=== PATIENT | male | born 1970 | race African-American/Black ===

== ENCOUNTER 2019-08-24 18:50 | Inpatient (IN) | payer MEDICAID, SELFPAY ==
[2019-08-24] VITALS (13 sets, daily range): BP systolic 141–180; BP diastolic 94–113; PULSE 71–126; RESP 17–38; TEMP 36.2–36.8; O2SAT 97–99; BMI 36.2
--- NOTE | ~2019-08-24 | XR_ITS ---
EXAMINATION: XR chest 2V DATE: 08/24/2019 20:38 INDICATION: Shortness of breath TECHNIQUE: PA and lateral views of the chest are obtained. COMPARISON: None available FINDINGS: There are diffuse interstitial and airspace opacities. Cardiomegaly is noted. There is a sm all right pleural effusion. No pneumothorax is identified. Calcified right hilar lymph nodes are cons istent with old granulomatous disease. IMPRESSION: 1. Cardiomegaly with likely pulmonary edema. 2. Small right pleural effusion. Reviewed, dictated and finalized at location A.
--- NOTE | ~2019-08-24 | CT_ITS ---
EXAMINATION: CTA chest abdomen pelvis DATE: 08/24/2019 21:43 INDICATION: Shortness of breath and abdominal distention TECHNIQUE: Computed tomographic angiography (CTA) of the chest, abdomen, and pelvis was performed wit h 100 mL Omnipque-350 intravenous contrast. Maximum intensity projection 3D-reconstructions of the ao rta and other arteries were constructed by the technologist on a separate workstation. The dose-lengt h product (DLP) was 1591.05 mGy-cm. Automated exposure control and iterative reconstruction technique were employed. COMPARISON: None. FINDINGS: CHEST CTA: The thoracic aorta is normal without aneurysm or dissection. Cardiomegaly is noted. There is a small right pleural effusion. Calcified pulmonary nodules and calcified mediastinal lymph nodes are consist ent with old granulomatous disease. There is mild dependent atelectasis. Mild bronchial wall thickeni ng is noted in the lower lobes. There is no pneumothorax. There is moderate thoracic spondylosis. ABDOMEN AND PELVIS CTA: The abdominal aorta is normal without aneurysm or dissection. There are single renal arteries bilater ally. The superior mesenteric artery, inferior mesenteric artery, and celiac axis appear normal. [place] calcifications in an otherwise normal spleen likely represent healed granulomatous disease. The liver, pancreas, and adrenal glands are normal. There is mild wall thickening of the gallbladder. A s mall volume of right upper quadrant ascites is noted. There is mild thickening of the left adrenal gl and. The right adrenal gland appears normal. The kidneys are unremarkable accounting for phase of con trast. No pathologically enlarged abdominal or pelvic lymph nodes are identified. There is no free in traperitoneal gas or evidence of bowel obstruction. There is diffuse anasarca. There is a small fat-c ontaining umbilical hernia. There is moderate lumbar spondylosis. IMPRESSION: 1. Cardiomegaly. 2. Small right pleural effusion. 3. Mild bronchial wall thickening of the lung bases which may be infectious or inflammatory. 4. Wall thickening of the gallbladder which could reflect acute cholecystitis. Correlate for right up per quadrant tenderness. 4. Diffuse anasarca and a small volume of ascites. Reviewed, dictated and finalized at location A. IMPRESSION: 1. Cardiomegaly. 2. Small right pleural effusion. 3. Mild bronchial wall thickening of the lung bases which may be infectious or inflammatory. 4. Wall thickening of the gallbladder which could reflect acute cholecystitis. Correlate for right upper quadrant tenderness. 4. Diffuse anasarca and a small volume of ascites.
--- NOTE | ~2019-08-24 | US_ITS ---
EXAMINATION: US renal BI EXAM DATE: 08/26/2019 09:56 INDICATION: Proteinuria. TECHNIQUE: Multiple grayscale and Doppler images of the kidneys were obtained (by a technologist who performed the scan) and subsequently reviewed. There is no prior study for comparison. FINDINGS: Right kidney: There is normal contour and echogenicity. It measures 9.1 x 5.1 x 4.6 centimeters. The re is a 9 mm cyst. There is no hydronephrosis. Left kidney: There is normal contour and echogenicity. It measures 10.2 x 5.8 x 5.1 centimeters. The re is a 1.5 cm cyst. There is no hydronephrosis. Bladder unremarkable. IMPRESSION: 1. Sonographically unremarkable kidneys. Reviewed, dictated and finalized at location A.
[2019-08-24 20:04] LABS: Basophils Absolute Auto 0.1 K/mm3 (0.0-0.1); Basophils Percent Auto 0.7 % (0.2-1.2); Eosinophils Absolute Auto 0.3 K/mm3 (0-0.3); Eosinophils Percent Auto 2.4 % (0-4.4); Hematocrit 47.2 % (42.0-52.0); Hemoglobin 13.4 g/dL (14.0-18.0); Immature Granulocyte Absolute 0.04 K/mm3 (0.00-0.031); Immature Granulocyte Percent A 0.3 % (0-0.5); Lymphocytes Absolute Auto 2.41 K/mm3 (0.9-3.2); Lymphocytes Percent Auto 19.7 % (18.3-44.2); Mean Corpuscular HGB Conc 28.4 g/dl (32-36); Mean Platelet Volume 12.7 fl (7.4-10.4); Monocytes Absolute Auto 1.1 K/mm3 (0.1-0.6); Monocytes Percent Auto 9.2 % (2.6-8.5); Neutrophils Absolute Auto 8.3 K/mm3 (1.3-6.7); Neutrophils Percent Auto 67.7 % (45.5-73.1); Nucleated Red Blood Cells Perc 0.2 % (0.0-0.2); Platelet Count Result 275 k/mm3 (150-375); Red Blood Count 6.38 M/mm3 (4.6-6.20); Red Cell Distribution Width 17.9 % (11.5-14.5); White Blood Count 12.2 K/mm3 (4.5-10.0)
[2019-08-24 20:17] LABS: Lactic Acid Reflex 1.4 mmol/L (0.7-2.1)
[2019-08-24 20:21] LABS: Hypochromasia 1+ (NORMAL); Platelet Estimate Adequate (Adequate)
--- NOTE | 2019-08-24 20:28 | ECG_ITS ---
Measurements Intervals [place] Rate: 110 P: 50 MI: 138 QRS: -21 QRSD: 88 T: 101 QT: 327 QTc: 443 Interpretive Statements SINUS TACHYCARDIA VENTRICULAR TRIGEMINY DELAYED PRECORDIAL R/S TRANSITION LOW QRS VOLTAGE IN LIMB LEADS CANNOT RULE OUT SEPTAL INFARCT, AGE INDETERMINATE BORDERLINE T WAVE ABNORMALITY- LATERAL LEADS ABNORMAL ECG Electronically Signed On 08-25-2019 7:49:35 CDT by Keagan Khan D.O.
[2019-08-24 20:32] LABS: Alanine Aminotransferase 15 U/L (4-50); Albumin Level 3.3 g/dL (3.5-5.1); Alkaline Phosphatase 72 U/L (38-126); Aspartate Amino Transferase 23 U/L (17-59); Bilirubin,Total 0.6 mg/dL (0.2-1.3); Blood Urea Nitrogen 16 mg/dL (9-20); Calcium 8.5 mg/dL (8.4-10.2); Carbon Dioxide 24 mmol/L (22-30); Chloride 107 mmol/L (98-107); Estimated CRCL calculation 82 ml/min; Estimated Glomerular Filt Rate > 60; Glucose 176 mg/dL (75-110); Lipase 118 U/L (23-300); Potassium 4.2 mmol/L (3.4-5.0); Sodium 138 mmol/L (137-145)
[2019-08-24 21:03] LABS: Magnesium 1.9 mg/dL (1.6-2.3)
--- NOTE | 2019-08-24 21:09 | ED.SOB ---
HPI - SOB/Dyspnea General Chief Complaint: Abdominal Pain Stated Complaint: Abd bloating, SOB Time Seen by Provider: 08/24/19 20:05 Source: patient and family Mode of arrival: ambulatory Limitations: no limitations History of Present Illness HPI Narrative: 49 yo male who presents with c/o shortness of breath x 2 weeks. Patient states he has had progressive shortness breath and it has worsened over the past 2 days. He reports now he has fatigue and shortness with any movement. He also noticed swelling to his legs and abdomen over the past week. He denies associated chest pain, cough, fever, abdominal pain, nausea, vomiting. HE denies previous history of cardiac, liver or renal disease. He has not seen a doctor in over 1 year. MD elicited complaint: shortness of breath Related Data Home Medications Medication Instructions Recorded Confirmed metformin 500 mg PO BID 08/25/19 08/25/19 Allergies Allergy/AdvReac Type Severity Reaction Status Date / Time No Known Allergies Allergy Verified 08/24/19 19:10 Review of Systems Review of Systems: All systems reviewed & are unremarkable except as noted in HPI and below Constitutional: Constitutional: Denies chills and Denies fever(s) ENT: Denies nasal congestion and Denies sore throat Cardiovascular: Cardiovascular: Denies chest pain, Denies rapid heart rate and Denies radiating jaw, neck or arm pain Respiratory: Respiratory: Denies cough, Reports dyspnea and Denies wheezing Gastrointestinal: Gastrointestinal: Denies abdominal pain, Reports bloating, Denies constipation, Denies diarrhea, Denies nausea and Denies vomiting Genitourinary: Genitourinary: Denies oliguria, Denies dysuria, Denies urinary frequency and Denies urinary incontinence [facility] Social History Social History Smoking status: Never smoker Second hand tobacco smoke exposure: No Alcohol intake: former Substance use: never Substance use type: does not use Gender identity (if verbalized by the patient): Male Spiritual care concerns: No Agree to blood products: Yes Exam Const: General: no acute distress and alert Orientation/consciousness: patient oriented x3 HENMT: Head: normocephalic and atraumatic Face and sinus: face symmetric Mouth: Yes Normal oral and palatal mucosa present and Yes lip normal Eyes: Pupils: Equal, round and reactive pupils present EOM: EOMs intact bilaterally Chest: Chest palpation & inspection: normal inspection of the chest Resp: Effort & Inspection: normal respiratory effort, no retractions and no use of accessory muscles Auscultation: crackles bilateral in the lower lung blancas Cardio: Rate: regular rate Rhythm: regular rhythm GI: Inspection: distended GI Palp: Yes Soft to palpation, No Tenderness to palpation present (GI), No Guarding due to palpation present (GI) and No Rigid due to palpation Back/Spine/Pelvis: Back: no CVA tenderness Skin: General skin exam: normal color Rashes: no rashes Neuro: General: patient oriented x3 and moves all extremities Extrem: General: edema bilateral (lower extremity, abdomen pitting) Psych: Mental Status: mental status grossly normal Affect: normal affect Course Consultations Consultation #1: I have discussed case with Dr. Uriarte who accepts patient to tele for new onset CHF. Date: 08/24/19 Time: 22:49 Vital Signs Vital signs: Vital Signs Temperature 98.3 F 08/24/19 19:06 Pulse Rate 115 H 08/24/19 19:06 Respiratory Rate 25 H 08/24/19 19:06 Blood Pressure 156/107 H 08/24/19 19:06 Pulse Oximetry 97 08/24/19 19:06 Temperature 97.2 F L 08/24/19 23:45 Pulse Rate 71 08/24/19 23:45 Respiratory Rate 24 H 08/25/19 02:48 Blood Pressure 180/100 H 08/24/19 23:45 Pulse Oximetry 92 08/25/19 02:48 MDM - SOB/Dyspnea Lab Data Attestation: I reviewed the patient's lab results. Result diagrams: 08/24/19 19:57 08/24/19 20:15 Labs: Lab R
[2019-08-24 21:13] LABS: NT Pro B Type Natriuretic Pept 1850 PG/ML (5-100)
[2019-08-24 21:16] LABS: Add Urine Microscopic? YES; Appearance Urine Clear (Clear); Bilirubin Urine Negative (Negative); Blood Urine Negative (Negative); Color Urine Yellow (Yellow); Glucose Urine UA Negative (Negative); Ketones Urine Negative (Negative); Leukocyte Esterase Ur Negative LEU/UL (Negative); Mucus Urine Few /lpf; Nitrate Urine Negative (Negative); Protein Urine 3+ mg/dL (Negative); RBC Urine 0-2 /hpf (0-2); Squamous Epithelial Cell Urine Rare /hpf (Few)
[2019-08-24 21:16] LABS: Troponin I 0.019 ng/mL (0.000-0.034)
[2019-08-24 21:18] LABS: Ammonia 13 umol/L (9-30)
[2019-08-24] MEDS: FUROSEMIDE INJ 40 MG/4 ML VIAL IV PUSH (21:21)
--- NOTE | 2019-08-24 21:27 | PC.NURSE ---
Patient being taken to radiology.
[2019-08-24 22:46] LABS: INR 1.1; Partial Thromboplastin Time 31.2 SECONDS (22.3-36.8); Prothrombin Time 13.4 Seconds (11.1-14.7)
[2019-08-25] VITALS (9 sets, daily range): BP systolic 136–172; BP diastolic 98–103; PULSE 72–111; RESP 18–24; TEMP 36.3–36.6; O2SAT 92–100
--- NOTE | 2019-08-25 03:40 | ADMGEN ---
This patient, Teo Bolden, was admitted to 3 [facility] Surg Room 322-01. Patient/family oriented to hospital policies and general routines including ID bracelet, bed and alarms, visiting hours, pain management, procedures, bathroom and other care routines, personal items, smoking policy, room service/diet, and visiting hours. Valuables list has been completed. Information on how to activate the Rapid Response Team has been discussed. Patient/Family are encouraged to report perceived risks to care and to ask questions if they do not understand what they are told or what they should do.
[2019-08-25 06:27] LABS: Basophils Absolute Auto 0.1 K/mm3 (0.0-0.1); Basophils Percent Auto 0.7 % (0.2-1.2); Eosinophils Absolute Auto 0.3 K/mm3 (0-0.3); Eosinophils Percent Auto 2.4 % (0-4.4); Hematocrit 43.2 % (42.0-52.0); Hemoglobin 12.3 g/dL (14.0-18.0); Immature Granulocyte Absolute 0.05 K/mm3 (0.00-0.031); Immature Granulocyte Percent A 0.5 % (0-0.5); Lymphocytes Absolute Auto 1.68 K/mm3 (0.9-3.2); Lymphocytes Percent Auto 15.6 % (18.3-44.2); Mean Corpuscular HGB Conc 28.5 g/dl (32-36); Mean Corpuscular Hemoglobin 20.9 pg (26-34); Mean Corpuscular Volume 73.5 fl (80-100); Mean Platelet Volume 12.3 fl (7.4-10.4); Monocytes Absolute Auto 1.1 K/mm3 (0.1-0.6); Monocytes Percent Auto 9.8 % (2.6-8.5); Neutrophils Absolute Auto 7.6 K/mm3 (1.3-6.7); Platelet Count Result 240 k/mm3 (150-375); Red Blood Count 5.88 M/mm3 (4.6-6.20); Red Cell Distribution Width 17.1 % (11.5-14.5); White Blood Count 10.8 K/mm3 (4.5-10.0)
[2019-08-25 06:39] LABS: Alanine Aminotransferase 15 U/L (4-50); Albumin Level 3.3 g/dL (3.5-5.1); Alkaline Phosphatase 71 U/L (38-126); Aspartate Amino Transferase 26 U/L (17-59); Bilirubin,Total 0.7 mg/dL (0.2-1.3); Blood Urea Nitrogen 15 mg/dL (9-20); Calcium 8.6 mg/dL (8.4-10.2); Carbon Dioxide 35 mmol/L (22-30); Chloride 103 mmol/L (98-107); Estimated CRCL calculation 87 ml/min; Estimated Glomerular Filt Rate > 60; Glucose 109 mg/dL (75-110); Potassium 4.3 mmol/L (3.4-5.0); Sodium 140 mmol/L (137-145)
[2019-08-25 06:42] LABS: Hemoglobin A1C 7.6 % (<5.7)
[2019-08-25] MEDS: ENOXAPARIN 40 MG/0.4 ML SYRINGE SUB-Q (08:44)
[2019-08-25] MEDS: FUROSEMIDE INJ 40 MG/4 ML VIAL IV PUSH ×2 (08:45→21:12)
[2019-08-25] MEDS: metFORMIN HCL 500 MG TABLET PO ×2 (08:45→17:40)
[2019-08-25 12:03] LABS: Glucose Point of Care 106 (65-105)
[2019-08-25 12:03] LABS: Glucose Point of Care 109 (65-105)
--- NOTE | 2019-08-25 13:47 | PM.IMHP ---
H&P: HPI History of Present Illness Chief complaint: CHF, edema Narrative: Teo Bolden is a 49 year old male with a medical history of diabetes who presented emergency room for abdominal bloating, pressure, leg swelling and shortness of breath. Patient states that the abdominal swelling and leg swelling started about 2-3 days ago and his shortness of breath started about 1 day ago. He says that his diet has not changed and he does not weigh himself daily. He has never been diagnosed with heart failure or had any heart disease. He does not eat fried food and sticks to a pretty healthy diet. He says he can lay flat without issue. He has no history of a stress test or echocardiogram. Prior to this swelling, he had no symptoms of shortness of breath when walking into the grocery store or walking up stairs. He is a manager of construction and has had no history of shortness of breath doing that activity either. He also bikes occasionally without issue. He denies any cold or flu-like symptoms, chest pain, dysuria, fevers, chills, diarrhea, constipation, rashes, open wounds, black stool or significant alcohol history. He said he has been feeling better since receiving the Lasix but still feels swollen. He has never had this happen before. His mom had CHF diagnosed at 60 but no coronary events noted. Review of Systems Review of Systems: All systems reviewed & are unremarkable except as noted in HPI and below PMFSH Past Medical History Medical History (Updated 08/25/19 @ 14:22 by Della Titus PA-C) T2DM (type 2 diabetes mellitus) Family History Family History (Updated 08/25/19 @ 14:12 by Della Titus PA-C) Mother Heart disease, Onset Age: 60 Social History Social History (Updated 08/25/19 @ 14:16 by Della Titus PA-C) Social History: Patient denies cigarette, marijuana, or drug use. He did occasionally smoke 2 cigars a day for a while but has quit that. He works in construction. He would like to does need his lauredorotheazan Parekh as his surrogate decision maker. He does not have a primary care physician and he would like to be a full code Smoking status: Never smoker Second hand tobacco smoke exposure: No Alcohol intake: former Substance use: never Substance use type: does not use Gender identity (if verbalized by the patient): Male Spiritual care concerns: No Agree to blood products: Yes Meds Home Medications and Allergies Home Medications Medication Instructions Recorded Confirmed Type metformin 500 mg PO BID 08/25/19 08/25/19 History Allergies Allergy/AdvReac Type Severity Reaction Status Date / Time No Known Allergies Allergy Verified 08/24/19 19:10 Vital Signs Vital Signs - 24 hr 08/24/19 19:06 08/24/19 19:35 08/24/19 19:45 Temperature 98.3 F Pulse Rate 115 H 110 H 106 H Respiratory Rate 25 H 30 H 22 H Blood Pressure 156/107 H Pulse Oximetry 97 08/24/19 19:46 08/24/19 20:01 08/24/19 20:15 Temperature Pulse Rate 108 H 106 H 110 H Respiratory Rate 21 H 36 H 38 H Blood Pressure 141/97 H Pulse Oximetry 08/24/19 20:53 08/24/19 21:00 08/24/19 21:02 Temperature Pulse Rate 126 H 113 H 107 H Respiratory Rate 25 H 38 H 30 H Blood Pressure 141/113 H Pulse Oximetry 08/24/19 21:24 08/24/19 22:03 08/24/19 23:29 Temperature 97.9 F Pulse Rate 107 H 109 H 99 Respiratory Rate 21 H 17 17 Blood Pressure 141/94 H Pulse Oximetry 99 08/24/19 23:45 08/25/19 02:48 08/25/19 06:00 Temperature 97.2 F L Pulse Rate 71 72 Respiratory Rate 18 24 H 24 H Blood Pressure 180/100 H 147/99 H Pulse Oximetry 99 92 95 Exam Narrative: Exam Narrative: General:Well developed well nourished patient resting on the side of the bed in no acute distress HEENT: Normocephalic, atraumatic, PERRL, Sclerae anicteric, oral mucosa moist, poor dentition Neck: Supple Resp: Decreased breath sounds at the bases. No wheezing or rhonchi Hea
[2019-08-25 17:36] LABS: Creatinine Urine 94.6 mg/dL
[2019-08-25 17:54] LABS: Total Protein Urine Random 425 mg/dL
[2019-08-25 18:22] LABS: Glucose Point of Care 90 (65-105)
[2019-08-25 22:09] LABS: Glucose Point of Care 115 (65-105)
[2019-08-26] VITALS (11 sets, daily range): BP systolic 130–152; BP diastolic 88–100; PULSE 65–109; RESP 18–23; TEMP 36.2–36.7; O2SAT 93–98
[2019-08-26 06:31] LABS: Hematocrit 43.5 % (42.0-52.0); Hemoglobin 12.9 g/dL (14.0-18.0); Mean Corpuscular HGB Conc 29.7 g/dl (32-36); Mean Corpuscular Hemoglobin 21.2 pg (26-34); Mean Corpuscular Volume 71.5 fl (80-100); Mean Platelet Volume 11.2 fl (7.4-10.4); Platelet Count Result 229 k/mm3 (150-375); Red Blood Count 6.08 M/mm3 (4.6-6.20); Red Cell Distribution Width 16.7 % (11.5-14.5); White Blood Count 10.7 K/mm3 (4.5-10.0)
[2019-08-26 06:35] LABS: Blood Urea Nitrogen 14 mg/dL (9-20); Carbon Dioxide 32 mmol/L (22-30); Chloride 103 mmol/L (98-107); Estimated CRCL calculation 87 ml/min; Estimated Glomerular Filt Rate > 60; Glucose 100 mg/dL (75-110); Magnesium 1.8 mg/dL (1.6-2.3); Potassium 3.8 mmol/L (3.4-5.0); Sodium 138 mmol/L (137-145)
[2019-08-26] MEDS: ENOXAPARIN 40 MG/0.4 ML SYRINGE SUB-Q (08:33)
[2019-08-26] MEDS: FUROSEMIDE INJ 40 MG/4 ML VIAL IV PUSH ×2 (08:33→21:09)
[2019-08-26] MEDS: LOSARTAN POTASSIUM 25 MG TABLET PO (08:33)
[2019-08-26] MEDS: metFORMIN HCL 500 MG TABLET PO ×2 (08:33→17:26)
[2019-08-26 10:03] LABS: Glucose Point of Care 90 (65-105)
[2019-08-26 12:17] LABS: Glucose Point of Care 128 (65-105)
--- NOTE | 2019-08-26 13:47 | PM.IMPN ---
Progress Note: A&P Assessment and Plan (1) Suspected CHF (congestive heart failure): Code(s): R09.89 - Other specified symptoms and signs involving the circulatory and respiratory systems Status: Acute Assessment and Plan: -----patient's symptoms are consistent with CHF and his BNP is elevated. Initial troponin negative and absolutely no chest pain. He has improved with 40 mg of IV Lasix BID so we will continue that. Echo has been ordered. Telemetry monitoring showed trigeminy but mag normal. Patient has not had any recent viral illnesses, change in diet, or chest pain. Precipitating etiology unclear at this time. Patient's family history is consistent his mom having CHF diagnosed in her 60s. (2) T2DM (type 2 diabetes mellitus): Code(s): E11.9 - Type 2 diabetes mellitus without complications Status: Acute Assessment and Plan: -----last glucose 128 and A1c is 7.6. At this time we will hold the metformin and continue with sliding scale insulin. (3) Proteinuria: Code(s): R80.9 - Proteinuria, unspecified Status: Acute Assessment and Plan: -----4.5g per day being excreted according to the random protein testing today. u/s normal. He is having a lot of swelling, could be nephrotic syndrome? Will ask nephrology to see the patient. There is no blood in the urine. (4) Anasarca: Code(s): R60.1 - Generalized edema Status: Acute Assessment and Plan: -----likely due to CHF but cannot rule out kidney disease. Liver Normal on CTA and no history of alcohol abuse. See above (5) Leukocytosis: Code(s): D72.829 - Elevated white blood cell count, unspecified Status: Acute Assessment and Plan: -----could be acute phase reactant. Patient has not had any fevers and no evidence of infection on exam, UA, or imaging. (6) Hypertension: Code(s): I10 - Essential (primary) hypertension Status: Acute Assessment and Plan: -----patient states he was diagnosed with hypertension but does not take any medications. losartan 25mg started daily and await echo results. (7) Proteinuria: Code(s): R80.9 - Proteinuria, unspecified Status: Acute Additional Plan Patient is being admitted to inpatient status and supervising physician is Dr. Dionte Alfaro Time Spent With Patient Time with patient: 25 - 35 minutes Subjective Date/time seen: 08/26/19 13:47 Interval history: Pt is a 49-year-old male here for hypervolemia. Patient states he is feeling better day after day with the Lasix. He is no longer having much shortness of breath and his abdomen feels less full. He has no scrotal edema. Pt denies nausea, vomiting, fevers, chills, constipation, diarrhea, chest pain, sob, or abdominal pain. Review of Systems Review of Systems: All systems reviewed & are unremarkable except as noted in HPI and below Exam Narrative: Exam Narrative: General:Well developed well nourished patient resting in the chair in acute distress HEENT: Normocephalic, atraumatic, PERRL, Sclerae anicteric, oral mucosa moist, poor dentition Neck: Supple Resp: Decreased breath sounds at the bases. No wheezing or rhonchi Heart: RRR with no murmurs. Telemetry reviewed which showed some occasional PVCs and episodes of trigeminy Abd: Distended. Positive bowel sounds Skin: Warm and dry Extremities: 1+ edema to mid [place] Neuro: Alert and Oriented x4 . CN 2-12 intact. No focal neurological deficits. Objective Data Vital Signs Vital Signs: Vital Signs - 24 hr 08/25/19 14:00 08/25/19 17:30 08/25/19 18:00 Temperature 97.9 F Pulse Rate 103 H 108 H 109 H Respiratory Rate 18 Blood Pressure 136/103 H Pulse Oximetry 95 08/25/19 20:00 08/25/19 22:00 08/25/19 22:50 Temperature 97.3 F L Pulse Rate 111 H 99 Respiratory Rate 18 19 Blood Pressure 172/98 H Pulse Oximetry 100 93 08/26/19 00:00 08/26/19 01:29 08/25
--- NOTE | 2019-08-26 15:08 | PM.CNNEP ---
Assessment and Plan Assessment and plan (1) Proteinuria: Code(s): R80.9 - Proteinuria, unspecified Status: Acute (2) Anasarca: Code(s): R60.1 - Generalized edema Status: Acute (3) Hypertension: Code(s): I10 - Essential (primary) hypertension Status: Acute (4) T2DM (type 2 diabetes mellitus): Code(s): E11.9 - Type 2 diabetes mellitus without complications Status: Acute (5) CHF (congestive heart failure): Code(s): I50.9 - Heart failure, unspecified Status: Acute Assessment and Plan: . 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 It is difficult to say if all of his swelling/edema is due to the proteinuria as there may be a component of congestive heart failure involved particularly since his BNP is abnormal. An echocardiogram has been ordered but is still pending at this time. Nevertheless, the treatment for both conditions (congestive heart failure and symptomatic proteinuria) are that of diuresis with his already which has already been instituted since his admission. Unfortunate I did not see how severe his swelling/ edema was prior to admission, but the patient reports that it is significantly improved with interventions to date. His urinalysis and urine sediment does not show any red blood cells or red cell casts so would seem less likely that he has some type of glomerulonephritis. for further evaluation of his proteinuria, I will check an SPEP, UPEP, as well as some other basic serological tests to rule out any type of infiltrative, inflammatory, or intrinsic kidney disease/pathology. His renal ultrasound did not show any anatomical issues. At this point, I would continue diuretic therapy an effort to optimize his volume status and follow up on the pending tests that I have ordered. If these tests are negative or equivocal, the next step would be consideration for a renal biopsy for definitive diagnosis. I will continue follow patient with you while he made hospitalized make further recommendations during his hospital course. Thank you for allowing me to participate in the care this patient. History of Present Illness Reason for Consult Consult date: 08/26/19 Reason for consult: proteinuria Chief Complaint Chief complaint: CHF, edema History of Present Illness Narrative: The patient is a 49 year old male with a past medical history as outlined below who presented to [facility] emergency room with complaints of abdominal bloating/pressure, lower extremity edema and shortness of breath. Apparently, these symptom started about 2 - 3 days prior to admission although the shortness of breath only really became an issue about a day before admission. Patient is not entirely clear what precipitated this change. He reports his diet is the same as it always has been and he reports no history with regard to congestive heart failure or any cardiac disease. He reports no orthopnea or paroxysmal nocturnal dyspnea or shortness of breath at baseline. 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 He reports no sick contacts fevers, chills nausea vomiting hematochezia, melena, or any other systemic symptoms. He reports that this has never happened before Workup and evaluation in the emergency room demonstrated the patient to be hemodynamically stable with clear evidence of significant swelling and edema particularly in his lower extremities and abdominal area. Routine blood test done did not show any significant findings other than an elevated BNP. Given this new onset swelling /edema, he was admitted to the hospital for further evaluation and therapy. Since his admission, he has been instituted on IV diuretic therapy and an echocardiogram has been ordered but is still pending. He states that he feels significantly better with the institution of
[2019-08-26 17:32] LABS: Glucose Point of Care 134 (65-105)
[2019-08-26 21:22] LABS: Glucose Point of Care 168 (65-105)
[2019-08-27] VITALS (12 sets, daily range): BP systolic 126–144; BP diastolic 79–97; PULSE 66–108; RESP 16–26; TEMP 36.3–36.7; O2SAT 94–97
--- NOTE | 2019-08-27 | ECHO_ITS ---
Patient Info Name: Teo Bolden Age: 49 years : 1970 Gender: Male Ht: 69 in Wt: 246 lbs BSA: 2.37 m2 HR: 98 bpm BP: 126 / 97 mmHg Heart Rhythm: Sinus Arrhythmia Technical Quality: Good Exam Date: 08/27/2019 11:09 AM Exam Location: [facility] Pulmonary Patient Status: Inpatient Admit Date: 08/24/2019 Staff Ordering Physician: Della Titus PA-C Sulfonation Equipment Operator: Osvaldo Cleary RDCS Attending Provider: Della Titus PA-C Referring Physician: Ariela MINOR; Exam Type: CA echo doppler color flow Study Info Indications I50.9 - Heart failure, unspecified Complete two-dimensional, color flow and Doppler transthoracic echocardiogram is performed. History/Risk Factors CHF; DM2, HTN, SOB, edema. Summary 1. Left ventricular chamber dimension is moderately enlarged. 2. Left ventricular systolic function is severely reduced, estimated at 25-30%. 3. Left atrial chamber dimension is moderately enlarged. 4. The aortic valve is normal. 5. There is trace mitral valve regurgitation. Left Ventricle Left ventricular chamber dimension is moderately enlarged. Left ventricular systolic function is severely reduced, estimated at 25-30%. The left ventricular diastolic function is grade I diastolic dysfunction. Right Ventricle Right ventricular chamber dimension is normal. Left Atria Left atrial chamber dimension is moderately enlarged. Right Atria Right atrial chamber dimension is normal. Aortic Valve The aortic valve is normal. Pulmonic Valve The pulmonic valve is not well visualized. Mitral Valve The mitral valve has normal leaflets and calcified annulus. There is trace mitral valve regurgitation. Tricuspid Valve The tricuspid valve leaflets are normal. Pericardium/Pleural The pericardium appears normal. Aorta The aortic root size at the sinus of Valsalva is normal. Left Ventricular Outflow Tract Name Value Normal LVOT 2D LVOT Diameter 1.8 cm LVOT Doppler LVOT Peak Gradient 6 mmHg LVOT Mean Gradient 3 mmHg LVOT VTI 19 cm LVOT VTI/AV VTI Ratio 1.0 LVOT Stroke Volume 52 ml LVOT CO 4.7 l/min LVOT CI 2.0 l/min/m2 Mitral Valve Name Value Normal MV Doppler MV Decel [place] 876 cm/s2 MV PHT 34 ms MV Area (PHT) 6.4 cm2 4.0-5.0 MV Diastolic Function MV E Peak Velocity 104 cm/s MV A Peak Velocity 57 cm/s MV E/A 1.8 MV Decel Time
[2019-08-27 06:16] LABS: Hematocrit 44.4 % (42.0-52.0); Hemoglobin 12.9 g/dL (14.0-18.0); Mean Corpuscular HGB Conc 29.1 g/dl (32-36); Mean Corpuscular Hemoglobin 21.4 pg (26-34); Mean Corpuscular Volume 73.5 fl (80-100); Mean Platelet Volume 11.8 fl (7.4-10.4); Platelet Count Result 229 k/mm3 (150-375); Red Blood Count 6.04 M/mm3 (4.6-6.20); Red Cell Distribution Width 17.2 % (11.5-14.5); White Blood Count 9.8 K/mm3 (4.5-10.0)
[2019-08-27 06:28] LABS: Blood Urea Nitrogen 15 mg/dL (9-20); Calcium 8.8 mg/dL (8.4-10.2); Carbon Dioxide 37 mmol/L (22-30); Chloride 99 mmol/L (98-107); Cholesterol 157 mg/dL (0-200); Estimated CRCL calculation 80 ml/min; Estimated Glomerular Filt Rate > 60; Glucose 104 mg/dL (75-110); HDL Direct 25 mg/dL; Potassium 3.9 mmol/L (3.4-5.0); Sodium 139 mmol/L (137-145); Triglycerides 93 mg/dL (<150)
[2019-08-27 06:38] LABS: Complement C3 139 mg/dL (88-165)
[2019-08-27 06:39] LABS: LDL Cholesterol Direct 113 mg/dL
[2019-08-27 08:45] LABS: Hepatitis B Surface Antigen Negative (Negative)
[2019-08-27 08:51] LABS: HAV RESULT Negative (Negative); Hepatitis B Core IgM Result Negative (Negative)
[2019-08-27 09:02] LABS: Hepatitis C Virus Antibody Negative (Negative)
[2019-08-27 09:03] LABS: Glucose Point of Care 134 (65-105)
[2019-08-27] MEDS: ENOXAPARIN 40 MG/0.4 ML SYRINGE SUB-Q (10:01)
[2019-08-27] MEDS: metFORMIN HCL 500 MG TABLET PO ×2 (10:01→18:18)
[2019-08-27] MEDS: LOSARTAN POTASSIUM 25 MG TABLET PO (10:02)
[2019-08-27] MEDS: FUROSEMIDE INJ 40 MG/4 ML VIAL IV PUSH (10:02)
--- NOTE | 2019-08-27 10:52 | PM.IMPN ---
Progress Note: A&P Assessment and Plan (1) Suspected CHF (congestive heart failure): Code(s): R09.89 - Other specified symptoms and signs involving the circulatory and respiratory systems Status: Acute Assessment and Plan: -----patient's symptoms are consistent with CHF and his BNP is elevated. Initial troponin negative and absolutely no chest pain. He has improved with 40 mg of IV Lasix BID so we will continue that. Echo has been ordered and will likely be done sometime today. Depending on that, may consult cardiology. Telemetry monitoring showed trigeminy but mag normal and pt asymptomatic. Will likely benefit from a beta tammy but will wait to see his EF before starting (carvdiolol vs metoprolol). Patient has not had any recent viral illnesses, change in diet, or chest pain. Precipitating etiology unclear at this time. Patient's family history is consistent his mom having CHF diagnosed in her 60s. (2) T2DM (type 2 diabetes mellitus): Code(s): E11.9 - Type 2 diabetes mellitus without complications Status: Acute Assessment and Plan: -----last glucose 134 and A1c is 7.6. At this time we will hold the metformin and continue with sliding scale insulin. (3) Proteinuria: Code(s): R80.9 - Proteinuria, unspecified Status: Acute Assessment and Plan: -----4.5g per day being excreted according to the random protein testing today. u/s normal. He is having a lot of swelling, could be nephrotic syndrome? Nephrology has started work up which is pending. There is no blood in the urine. (4) Anasarca: Code(s): R60.1 - Generalized edema Status: Acute Assessment and Plan: -----likely due to CHF but cannot rule out kidney disease. Liver Normal on CTA and no history of alcohol abuse. See above (5) Leukocytosis: Code(s): D72.829 - Elevated white blood cell count, unspecified Status: Acute Assessment and Plan: -----Resolved. could be acute phase reactant. Patient has not had any fevers and no evidence of infection on exam, UA, or imaging. (6) Hypertension: Code(s): I10 - Essential (primary) hypertension Status: Acute Assessment and Plan: -----patient states he was diagnosed with hypertension but does not take any medications. losartan 25mg started daily and await echo results. (7) ARCELIA (obstructive sleep apnea): Code(s): G47.33 - Obstructive sleep apnea (adult) (pediatric) Status: Acute Assessment and Plan: -----continue cpap Subjective Date/time seen: 08/27/19 10:52 Interval history: Pt is a 49-year-old male here for hypervolemia. Patient states he is feeling better day after day with the Lasix. He is no longer having much shortness of breath and his abdomen feels less full. He has no scrotal edema and his LE swelling is better. Pt denies nausea, vomiting, fevers, chills, constipation, diarrhea, chest pain, sob, or abdominal pain. Exam Narrative: Exam Narrative: General:Well developed well nourished patient walking around in the room in [facility] HEENT: Normocephalic, atraumatic, PERRL, Sclerae anicteric, oral mucosa moist, poor dentition Neck: Supple Resp: Decreased breath sounds at the bases. No wheezing or rhonchi. crackles in the left base Heart: RRR with no murmurs. Telemetry reviewed which showed some occasional PVCs and episodes of trigeminy Abd: Distended--better today. Positive bowel sounds Skin: Warm and dry Extremities: 1+ edema to ankles--improved . Neuro: Alert and Oriented x4 . CN 2-12 intact. No focal neurological deficits. Objective Data Vital Signs Vital Signs: Vital Signs - 24 hr 08/26/19 12:00 08/26/19 13:39 08/26/19 16:00 Temperature 97.3 F L Pulse Rate 98 101 H 107 H Respiratory Rate 18 Blood Pressure 130/100 H Pulse Oximetry 98 08/26/19 20:00 08/26/19 21:45 08/26/19 22:00 Temperature 98.1 F Pulse Rate 109 H 65 Respirat
[2019-08-27] MEDS: ATORVASTATIN 20 MG TABLET PO (13:22)
[2019-08-27 13:46] LABS: Glucose Point of Care 116 (65-105)
--- NOTE | 2019-08-27 16:14 | PM.CNCAR ---
Assessment and Plan Additional Plan decompensated congestive heart failure, by picture of biventricular failure which is due to LV systolic dysfunction based on the echocardiographic findings. He has improved significantly clinically with loop diuretics and losartan. Appears to be essentially asymptomatic at this time. Would recommend stopping IV furosemide since he appears to be euvolemic and starting oral spironolactone. I will advance his losartan to 50 mg daily and start beta-tammy therapy in the form of oral carvedilol. The patient should have a coronary angiogram to determine if his cardiomyopathy is ischemic which given his diabetes is certainly a good possibility. I did mention to Mr. hernandez that this could be done in the next couple of days while he is still in the hospital. It is his preference to go home from the hospital therapy and come back in for the invasive part of this workup as an outpatient. I told him that that was perfectly acceptable as well. It will be my expectation therefore that if he is doing well he can probably be discharged to home. I will make sure that my staff arranges for telemedicine follow-up visit in a couple weeks or so to assess his progress and discussed plans for an outpatient angiogram. Blaise Kirkland MD [facility] History of Present Illness History of Present Illness Consult date/time: Date of service:08/27/19 16:14 Reason For Visit: CHF, edema Narrative: This is a very pleasant 49-year-old black male that I am seeing at the request of the hospitalist this afternoon for assistance with the management of congestive heart failure. He was admitted to the hospital several days ago this past week on Tuesday evening with some shortness of breath edema and increasing abdominal girth that began a couple of weeks before admission. He was not experiencing any orthopnea or PND but he had exertional shortness of breath and what appeared to be the picture of volume overload. The patient has a history of diabetes for which he was taking metformin but freely admits to not seeing a physician regularly for a long time. He had no knowledge of hypertension dyslipidemia [place] specifically any sort of cardiac problem at all. Following admission he was treated with furosemide as well as losartan and over the 1st 48 hours he has was in the hospital he had marked improvement in his symptoms. He states at this point he feels essentially back to normal in terms of his breathing he is quite comfortable and has no obvious complaints. He was hoping to be discharged relatively soon. An echocardiogram was requested over the weekend which was performed today and interpreted by myself just a short time ago. The patient has significant left ventricular systolic failure with LV enlargement and a reduced ejection fraction resulting in consulting us to see the patient today. His ECG shows a sinus mechanism with low QRS voltage and occasional ventricular ectopic activity. Denies any sense of chest pain pressure or heaviness. He works as construction as a sosa and does not exercise regularly but does have a physically active job and has not noticed any problem with exertional chest pain of any kind. He states his mother had congestive heart failure and was found to have this in her 60s and at the age of 73 Review of Systems Constitutional: Constitutional: Reports no additional constitutional complaints Eyes: Eyes: Reports no additional eye complaints ENT: Reports system reviewed and no additional complaints, except as documented Cardiovascular: Cardiovascular: Reports as per HPI Respiratory: Respiratory: Reports as per HPI Gastrointestinal: Gastrointestinal: Reports no additional gastrointestinal complaints Genitourinary: Genitourinary: Reports no additional male genitourinary complaints Musculoskeletal: Musculoskeletal: Reports no additional musculoskeletal complaints Integumentary/Breasts: Skin/Breast: Reports syste
--- NOTE | 2019-08-27 16:20 | PM.PNNEP ---
Progress Note: A&P Assessment and Plan (1) Proteinuria: Code(s): R80.9 - Proteinuria, unspecified Status: Acute Assessment and Plan: The patient has proteinuria. His creatinine is normal. Albumin level is mildly low at 3.3. Cholesterol levels are not too bad. His urine studies show that he spills about 4 g of protein. He does not have blood in his urinalysis. Evaluation is pending. If no inflammatory source can be found this may negative turner to be from his diabetes. Will see with the evaluation shows. (2) Anasarca: Code(s): R60.1 - Generalized edema Status: Acute Assessment and Plan: He has lots of swelling. This seems to be a little bit better. Has been receiving diuretics. We will follow this along. (3) Hypertension: Code(s): I10 - Essential (primary) hypertension Status: Acute Assessment and Plan: Blood pressure is a bit higher than we would like. On losartan and carvedilol. (4) T2DM (type 2 diabetes mellitus): Code(s): E11.9 - Type 2 diabetes mellitus without complications Status: Acute Assessment and Plan: He is on metformin (5) CHF (congestive heart failure): Code(s): I50.9 - Heart failure, unspecified Status: Acute Assessment and Plan: Ejection fraction is severely reduced at 25-30%. Carvedilol and losartan should help this as well.\ Diuretics as needed Subjective Date/time seen: 08/27/19 16:20 Interval history: Patient feels about the same today. He still has some swelling. No chest pain or shortness of Breath Review of Systems Cardiovascular: Cardiovascular: Reports no additional cardiovascular complaints Respiratory: Respiratory: Reports no additional respiratory complaints Gastrointestinal: Gastrointestinal: Reports no additional gastrointestinal complaints Genitourinary: Genitourinary: Reports no additional male genitourinary complaints Exam Narrative: Exam Narrative: Well developed well-nourished in no acute distress Lungs clear Heart regular without rub Abdomen bowel sounds positive soft nontender Extremities 1-2+ edema Skin no rash Objective Data Vital Signs Vital Signs: Vital Signs - 24 hr 08/26/19 20:00 08/26/19 21:45 08/26/19 22:00 Temperature 36.7 C Pulse Rate 109 H 65 Respiratory Rate 22 H 18 Blood Pressure 147/88 H Pulse Oximetry 95 95 08/27/19 00:00 08/27/19 01:51 08/27/19 04:00 Temperature Pulse Rate 88 92 Respiratory Rate 26 H Blood Pressure Pulse Oximetry 94 08/27/19 06:00 08/27/19 08:00 08/27/19 12:00 Temperature 36.7 C Pulse Rate 98 93 97 Respiratory Rate 18 Blood Pressure 126/97 H Pulse Oximetry 95 08/27/19 14:00 Temperature 36.4 C L Pulse Rate 66 Respiratory Rate 16 Blood Pressure 144/79 H Pulse Oximetry 97 Intake/Output Intake/Output: Intake & Output 08/24/19 08/25/19 08/26/19 08/27/19 23:59 23:59 23:59 23:59 Intake Total 1090 730 720 Output Total 250 Balance 840 730 720 Meds/Results Medications: Active Medications Generic Name Dose Route Start Last Admin Trade Name Freq PRN Reason Stop Dose Admin Atorvastatin Calcium 20 mg 08/27/19 09:00 08/27/19 13:22 Lipitor PO 20 mg DAILY ZACKARY Administration Carvedilol 6.25 mg 08/27/19 21:00 Coreg PO Q12HR ZACKARY Dextrose 12.5 gm 08/25/19 01:12 Dextrose 50% Syringe IV PUSH PRN PRN Hypoglycemia Protocol Enoxaparin Sodium 40 mg 08/25/19 09:00 08/27/19 10:01 Lovenox SUB-Q 40 mg DAILY ZACKARY Administration Glucagon 1 mg 08/25/19 01:12 Glucagon For Inj IM PRN PRN Hypoglycemia Protocol Glucose 15 gm 08/25/19 01:12 Glutose 15 PO PRN PRN Hypoglycemia Protocol Dextrose 1,000 mls @ 100 mls/hr 08/25/19 01:12 Dextrose 5% 1,000 Ml IVPB PRN PRN Hypoglycemia Protocol Insulin Aspart 2 - 5 units 08/25/19 08:00 08/27/19 12:50
[2019-08-27 18:03] LABS: Glucose Point of Care 118 (65-105)
[2019-08-27] MEDS: carvediloL 6.25 MG TABLET PO (20:42)
[2019-08-27 22:22] LABS: Glucose Point of Care 163 (65-105)
[2019-08-28] VITALS (8 sets, daily range): BP systolic 127–145; BP diastolic 75–87; PULSE 66–109; RESP 16–20; TEMP 36.6; O2SAT 92–97
[2019-08-28 06:33] LABS: Basophils Absolute Auto 0.1 K/mm3 (0.0-0.1); Basophils Percent Auto 0.8 % (0.2-1.2); Eosinophils Absolute Auto 0.3 K/mm3 (0-0.3); Eosinophils Percent Auto 2.9 % (0-4.4); Hematocrit 45.7 % (42.0-52.0); Hemoglobin 13.3 g/dL (14.0-18.0); Immature Granulocyte Absolute 0.02 K/mm3 (0.00-0.031); Immature Granulocyte Percent A 0.2 % (0-0.5); Lymphocytes Absolute Auto 1.94 K/mm3 (0.9-3.2); Lymphocytes Percent Auto 21.6 % (18.3-44.2); Mean Corpuscular HGB Conc 29.1 g/dl (32-36); Mean Corpuscular Volume 72.3 fl (80-100); Mean Platelet Volume 11.4 fl (7.4-10.4); Monocytes Absolute Auto 0.8 K/mm3 (0.1-0.6); Monocytes Percent Auto 8.6 % (2.6-8.5); Neutrophils Absolute Auto 5.9 K/mm3 (1.3-6.7); Neutrophils Percent Auto 65.9 % (45.5-73.1); Platelet Count Result 238 k/mm3 (150-375); Red Blood Count 6.32 M/mm3 (4.6-6.20); Red Cell Distribution Width 16.6 % (11.5-14.5)
[2019-08-28 06:44] LABS: Albumin Level 3.4 g/dL (3.5-5.1); Blood Urea Nitrogen 16 mg/dL (9-20); Calcium 8.6 mg/dL (8.4-10.2); Carbon Dioxide 35 mmol/L (22-30); Chloride 100 mmol/L (98-107); Estimated CRCL calculation 74 ml/min; Estimated Glomerular Filt Rate > 60; Glucose 113 mg/dL (75-110); Magnesium 1.9 mg/dL (1.6-2.3); Phosphorus 4.5 mg/dL (2.5-4.5); Potassium 4.1 mmol/L (3.4-5.0); Sodium 137 mmol/L (137-145)
[2019-08-28 07:46] LABS: Hypochromasia 1+ (NORMAL); Ovalocytes 1+ (NORMAL); Platelet Estimate Adequate (Adequate)
[2019-08-28 08:09] LABS: Glucose Point of Care 133 (65-105)
--- NOTE | 2019-08-28 08:31 | PM.PNCARD ---
Progress Note: A&P Assessment and Plan (1) CHF (congestive heart failure): Code(s): I50.9 - Heart failure, unspecified Status: Acute Additional Plan Patient with past medical history of diabetes mellitus presented with shortness of breath, found to have acute decompensated CHF with severe LV systolic dysfunction. Patient has had significant symptomatic improvement and is eager to go home. Ischemic workup was discussed with the patient, and he has opted to undergo cardiac catheterization as an outpatient. Optimal, tolerable medical treatment-carvedilol, losartan, spironolactone. Will add furosemide 40 mg p.o. q.a.m. as a maintenance diuretic, which can be later switched to p.r.n. as an outpatient. May consider switching losartan to sacubitrill/valsartan as an outpatient. Subjective Date/time seen: 08/28/19 08:31 Date of service: 08/28/2019 Chief complaint: Shortness of breath Interval history: Patient reports improvement in shortness of breath and lower extremity swelling. He denies any chest pain, palpitation, dizziness or syncope. Exam Const: General: comfortable and no acute distress Other: well-developed well-nourished black male overweight no distress appears to be in good spirits denies any complaints currently HENMT: Mouth: Yes moist mucous membranes Eyes: Sclera: sclerae normal Pupils: Equal, round and reactive pupils present Neck: Neck: supple and no JVD Thyroid: thyroid normal Other: carotid pulses are normal in character bilaterally and are free of bruits Resp: Effort & Inspection: normal respiratory effort Auscultation: clear to auscultation bilaterally Cardio: Rate: regular rate Rhythm: regular rhythm Other: no audible cardiac murmur. PMI is not palpable GI: Auscultation: normal bowel sounds Skin: General skin exam: normal color Neuro: Cranial nerves: Yes Equal, round and reactive pupils present Cognition (Neuro): normal cognition Extrem: General: normal to inspection Objective Data Vital Signs Vital Signs: Vital Signs - 24 hr 08/27/19 12:00 08/27/19 14:00 08/27/19 16:00 Temperature 36.4 C L Pulse Rate 97 66 107 H Respiratory Rate 16 Blood Pressure 144/79 H Pulse Oximetry 97 08/27/19 20:00 08/27/19 20:42 08/27/19 22:00 Temperature 36.3 C L Pulse Rate 108 H 84 103 H Respiratory Rate 16 Blood Pressure 132/93 H Pulse Oximetry 95 08/27/19 22:22 08/28/19 00:00 08/28/19 04:00 Temperature Pulse Rate 103 H 97 90 Respiratory Rate 21 H Blood Pressure Pulse Oximetry 94 08/28/19 05:42 08/28/19 06:00 Temperature 36.6 C Pulse Rate 90 89 Respiratory Rate 20 16 Blood Pressure 145/87 H Pulse Oximetry 95 92 Intake/Output Intake/Output: Intake & Output 08/25/19 08/26/19 08/27/19 08/28/19 23:59 23:59 23:59 23:59 Intake Total 8771 300 0046 240 Output Total 250 Balance 831 381 8853 240 Meds/Results Medications: Active Medications Generic Name Dose Route Start Last Admin Trade Name Freq PRN Reason Stop Dose Admin Atorvastatin Calcium 20 mg 08/27/19 09:00 08/27/19 13:22 Lipitor PO 20 mg DAILY ZACKARY Administration Carvedilol 6.25 mg 08/27/19 21:00 08/27/19 20:42 Coreg PO 6.25 mg Q12HR ZACKARY Administration Dextrose 12.5 gm 08/25/19 01:12 Dextrose 50% Syringe IV PUSH PRN PRN Hypoglycemia Protocol Enoxaparin Sodium 40 mg 08/25/19 09:00 08/27/19 10:01 Lovenox SUB-Q 40 mg DAILY ZACKARY Administration Glucagon 1 mg 08/25/19 01:12 Glucagon For Inj IM PRN PRN Hypoglycemia Protocol Glucose 15 gm 08/25/19 01:12 Glutose 15 PO PRN PRN Hypoglycemia Protocol Dextrose 1,000 mls @ 100 mls/hr 08/25/19 01:12 Dextrose 5% 1,000 Ml IVPB PRN PRN Hypoglycemia Protocol Insulin Aspart 2 - 5 units 08/25/19 08:00 08/27/19 18:17 Novolog SUB-Q Not Given TIDWM ZACKARY Protocol Losartan Potassium 50 mg 08/28/19 09:00
[2019-08-28] MEDS: ATORVASTATIN 20 MG TABLET PO (09:11)
[2019-08-28] MEDS: metFORMIN HCL 500 MG TABLET PO (09:11)
[2019-08-28] MEDS: carvediloL 6.25 MG TABLET PO (09:11)
[2019-08-28] MEDS: ENOXAPARIN 40 MG/0.4 ML SYRINGE SUB-Q (09:11)
[2019-08-28] MEDS: LOSARTAN POTASSIUM 50 MG TABLET PO (09:12)
[2019-08-28] MEDS: SPIRONOLACTONE 25 MG TABLET PO (09:13)
[2019-08-28] MEDS: FUROSEMIDE 40 MG TABLET PO (09:52)
--- NOTE | 2019-08-28 10:42 | PM.PNNEP ---
Progress Note: A&P Assessment and Plan (1) Proteinuria: Code(s): R80.9 - Proteinuria, unspecified Status: Acute Assessment and Plan: The patient has proteinuria. His creatinine is normal. Albumin level is mildly low at 3.3. Cholesterol levels are not too bad. His urine studies show that he spills about 4 g of protein. He does not have blood in his urinalysis. Evaluation is pending. So far, complements are normal, hepatitis is negative, Will see with the evaluation shows. (2) Anasarca: Code(s): R60.1 - Generalized edema Status: Acute Assessment and Plan: Swelling is vastly improved. Has been receiving diuretics, 40 mg a day of Lasix. Launch is numbers on this. (3) Hypertension: Code(s): I10 - Essential (primary) hypertension Status: Acute Assessment and Plan: Blood pressure is a bit higher than we would like. On losartan and carvedilol. On diuretics as well. (4) T2DM (type 2 diabetes mellitus): Code(s): E11.9 - Type 2 diabetes mellitus without complications Status: Acute Assessment and Plan: He is on metformin (5) CHF (congestive heart failure): Code(s): I50.9 - Heart failure, unspecified Status: Acute Assessment and Plan: Ejection fraction is severely reduced at 25-30%. Carvedilol and losartan should help this as well. Additional Plan Subjective Date/time seen: 08/28/19 10:42 Interval history: Patient feels about the same today. He has almost no swelling. No chest pain or shortness of Breath Eager for discharge. Review of Systems Cardiovascular: Cardiovascular: Reports no additional cardiovascular complaints Respiratory: Respiratory: Reports no additional respiratory complaints Gastrointestinal: Gastrointestinal: Reports no additional gastrointestinal complaints Genitourinary: Genitourinary: Reports no additional male genitourinary complaints Exam Narrative: Exam Narrative: Well developed well-nourished in no acute distress Lungs clear to auscultation Heart regular without rub Abdomen bowel sounds positive soft nontender Extremities 1-2+ edema Skin no rash or subcu nodules Objective Data Vital Signs Vital Signs: Vital Signs - 24 hr 08/27/19 12:00 08/27/19 14:00 08/27/19 16:00 Temperature 36.4 C L Pulse Rate 97 66 107 H Respiratory Rate 16 Blood Pressure 144/79 H Pulse Oximetry 97 04/20/20 20:00 08/27/19 20:42 08/27/19 22:00 Temperature 36.3 C L Pulse Rate 108 H 84 103 H Respiratory Rate 16 Blood Pressure 132/93 H Pulse Oximetry 95 08/27/19 22:22 08/28/19 00:00 08/28/19 04:00 Temperature Pulse Rate 103 H 97 90 Respiratory Rate 21 H Blood Pressure Pulse Oximetry 94 08/28/19 05:42 08/28/19 06:00 08/28/19 08:00 Temperature 36.6 C Pulse Rate 90 89 109 H Respiratory Rate 20 16 Blood Pressure 145/87 H Pulse Oximetry 95 92 08/28/19 09:11 Temperature Pulse Rate 88 Respiratory Rate Blood Pressure Pulse Oximetry Intake/Output Intake/Output: Intake & Output 08/25/19 08/26/19 08/27/19 08/28/19 23:59 23:59 23:59 23:59 Intake Total 9889 420 7443 240 Output Total 250 Balance 443 299 9856 240 Meds/Results Medications: Active Medications Generic Name Dose Route Start Last Admin Trade Name Freq PRN Reason Stop Dose Admin Atorvastatin Calcium 20 mg 08/27/19 09:00 08/28/19 09:11 Lipitor PO 20 mg DAILY ZACKARY Administration Carvedilol 6.25 mg 08/27/19 21:00 08/28/19 09:11 Coreg PO 6.25 mg Q12HR ZACKARY Administration Dextrose 12.5 gm 08/25/19 01:12 Dextrose 50% Syringe IV PUSH PRN PRN Hypoglycemia Protocol Enoxaparin Sodium 40 mg 08/25/19 09:00 08/28/19 09:11 Lovenox SUB-Q 40 mg DAILY ZACKARY Administration Furosemide 40 mg 08/28/19 09:00 08/28/19 09:52 Lasix Tablet PO 40 mg DAILY ZACKARY Administration Glucagon 1 mg 08/25/19
[2019-08-28 12:22] LABS: Glucose Point of Care 120 (65-105)
--- NOTE | 2019-08-28 14:55 | PM.DS ---
DS: Diagnosis Admitting Diagnosis Admitting Diagnosis: Other specified symptoms and signs involving the circulatory and respiratory systems Discharge Diagnosis (1) Suspected CHF (congestive heart failure): Code(s): R09.89 - Other specified symptoms and signs involving the circulatory and respiratory systems Status: Acute Assessment and Plan: Date of Service 08/28/19 Mr. Bolden is a 49yo M with history of diabetes who presented to the ED for evaluation of abdominal bloating/pressure, leg swelling, and shortness of breath over the last 3 days prior to arrival. BNP was elevated and his symptoms were consistent with a new diagnosis of congestive heart failure. He had no recent illnesses, change in diet, or chest pain. Echocardiogram showed severely reduced systolic function EF 25-30%. Telemetry showed some ventricular ectopy, with which he was asymptomatic. He was diuresed with IV Lasix to which he quickly responded well. Cardiology was consulted and he was evaluated by Dr Kirkland. His IV lasix was transitioned to oral spironolactone and he was started on losartan as well. Nephrology was also consulted due to his swelling and proteinuria, but ultimately it seems his symptoms are most consistent with decompensated heart failure. His symptoms improved with diuresis and the appropriate medical management was initiated by cardiology. He was feeling well and hemodynamically stable for discharge 08/28/19. He will follow up with cardiology and likely be evaluated by outpatient cardiac catheterization in the near future. (2) T2DM (type 2 diabetes mellitus): Code(s): E11.9 - Type 2 diabetes mellitus without complications Status: Acute Assessment and Plan: A1c 7.6. (3) Proteinuria: Code(s): R80.9 - Proteinuria, unspecified Status: Acute (4) Anasarca: Code(s): R60.1 - Generalized edema Status: Acute Assessment and Plan: Improved. [place] to be related to new CHF. Diuresis as outlined above. (5) Leukocytosis: Code(s): D72.829 - Elevated white blood cell count, unspecified Status: Acute Assessment and Plan: Resolved. [place] to be stress reaction. No evidence of infectious process. (6) Hypertension: Code(s): I10 - Essential (primary) hypertension Status: Acute Assessment and Plan: Started on losartan. (7) ARCELIA (obstructive sleep apnea): Code(s): G47.33 - Obstructive sleep apnea (adult) (pediatric) Status: Acute Assessment and Plan: Continue CPAP. DS: Summary Time Spent with Patient Time attestation: Total time spent providing and/or coordinating discharge services: 35 minutes Exam Narrative: Exam Narrative: General:Well developed well nourished patient sitting on edge of bed in no acute distress. HEENT: Normocephalic, EOMI, oral mucosa moist, poor dentition Neck: Supple Resp: Decreased breath sounds at the bases. No wheezing or rhonchi. Respirations even and nonlabored. Tolerating room air. Heart: RRR. Telemetry reviewed which showed some occasional PVCs and episodes of trigeminy Abd: slightly distended, nontender. Positive bowel sounds Extremities: Trace STEPHON lower extremity edema. Neuro: Alert and Oriented x4 . No focal neurological deficits. Speech is clear. DS: Data Data Completed and Pending Labs on day of discharge: Laboratory Tests 08/28/19 06:10 08/28/19 06:10 08/27/19 05:17 Glomerular Base Memb Ab <1.0 Imaging Radiologist's impression: ITS Impressions Chest X-Ray 08/24/19 20:40 IMPRESSION: 1. Cardiomegaly with likely pulmonary edema. 2. Small right pleural effusion. Chest/Abdomen/Pelvis CTA 08/24/19 21:47 IMPRESSION: 1. Cardiomegaly. 2. Small right pleural effusion. 3. Mild bronchial wall thickening of the lung bases which may be infectious or inflammatory. 4. Wall thickening of the gallbladder which could reflect acute cholecystitis. Correlate
[2019-08-28 15:02] LABS: Eosinophil Urine 3 % eos
[2019-08-28 23:34] LABS: Albumin 2.9 g/dL (3.8-4.8); Alpha 1 Globulin 0.3 g/dL (0.2-0.3); Alpha 2 Globulin 0.7 g/dL (0.5-0.9); Beta 1 Globulin 0.5 g/dL (0.4-0.6); Gamma Globulin 0.9 g/dL (0.8-1.7); Protein, Total 5.8 g/dL (6.1-8.1)
[2019-08-29 22:28] LABS: ANCA Screen Negative (Negative)
[2019-08-31 07:55] LABS: Anti Glomerular Basement Memb <1.0 AI (<1.0)
[2019-09-04 05:05] LABS: Creatinine, Random Urine 183 mg/dL (20-320); Total Protein/Creatinine Ratio 2967 mg/g creat (22-128)
== END 2019-08-28 16:25 | disposition home or self-care (01) | DRG 194 ==
LOC: ANHED 23:14 → ANH3MEDSUR 23:23
PROVIDERS: Emergency Medicine; Emergency Medicine Emergency Medical Services; Internal Medicine Nephrology; Physician Assistant; Admitting Provider Internal Medicine; Emergency Provider General Practice; Visit Provider Physician Assistant
DX: I11.0 Hypertensive heart disease with heart failure (principal); I50.23 Acute on chronic systolic (congestive) heart failure; I47.1 Supraventricular tachycardia; E11.9 Type 2 diabetes mellitus without complications; D72.829 Elevated white blood cell count, unspecified; R80.9 Proteinuria, unspecified; G47.33 Obstructive sleep apnea (adult) (pediatric); Z87.891 Personal history of nicotine dependence
CPT/HCPCS: 36415; 71046; 71275; 74174; 76775; 80048; 80053; 80061; 80069; 80074; 81001; 82140; 82570; 83036; 83520; 83605; 83690; 83735; 83880; 84155; 84156; 84165; 84166; 84484; 85025; 85027; 85610; 85730; 85999; 86021; 86038; 86160; 93005; 93306; 96374; 99285; A9270; J1650; J1940; Q9967

== ENCOUNTER 2020-02-20 00:54 | Outpatient (CLI) | payer OTHER, SELFPAY ==
[2020-02-20 18:38] LABS: SARS-CoV-2 RNA PCR Negative
== END 2020-02-20 00:55 | disposition home or self-care (01) ==
LOC: ANHCOVIDDT 00:54
PROVIDERS: Visit Provider Specialist
DX: Z01.812 Encounter for preprocedural laboratory examination (principal); Z20.828 Contact with and (suspected) exposure to other viral communicable diseases
CPT/HCPCS: 87635; C9803; U0003

== ENCOUNTER 2020-02-22 01:40 | Day surgery (SDC) | payer OTHER, SELFPAY ==
[2020-02-21 12:03] VITALS: BMI 31.7
[2020-02-22] VITALS (14 sets, daily range): BP systolic 108–146; BP diastolic 60–88; PULSE 74–85; RESP 12–24; TEMP 34.8–36.5; O2SAT 94–100; BMI 31.4
[2020-02-22 09:49] LABS: Basophils Absolute Auto 0.1 K/mm3 (0.0-0.1); Basophils Percent Auto 0.6 % (0.2-1.2); Eosinophils Absolute Auto 0.2 K/mm3 (0-0.3); Eosinophils Percent Auto 2.4 % (0-4.4); Hemoglobin 12.9 g/dL (14.0-18.0); Immature Granulocyte Absolute 0.02 K/mm3 (0.00-0.031); Immature Granulocyte Percent A 0.2 % (0-0.5); Lymphocytes Absolute Auto 1.58 K/mm3 (0.9-3.2); Lymphocytes Percent Auto 19.6 % (18.3-44.2); Mean Corpuscular Hemoglobin 22.1 pg (26-34); Mean Corpuscular Volume 73.6 fl (80-100); Mean Platelet Volume 12.4 fl (7.4-10.4); Monocytes Absolute Auto 0.7 K/mm3 (0.1-0.6); Monocytes Percent Auto 8.2 % (2.6-8.5); Neutrophils Absolute Auto 5.6 K/mm3 (1.3-6.7); Platelet Count Result 232 k/mm3 (150-375); Red Blood Count 5.84 M/mm3 (4.6-6.20); Red Cell Distribution Width 14.4 % (11.5-14.5); White Blood Count 8.1 K/mm3 (4.5-10.0)
[2020-02-22 09:59] LABS: INR 0.9; Prothrombin Time 11.8 Seconds (11.1-14.7)
[2020-02-22 10:02] LABS: Anion Gap 10 mmol/L (8-16); Blood Urea Nitrogen 16 mg/dL (9-20); Calcium 9.5 mg/dL (8.4-10.2); Carbon Dioxide 26 mmol/L (22-30); Chloride 102 mmol/L (98-107); Estimated CRCL calculation 98 ml/min; Estimated Glomerular Filt Rate > 60; Glucose 335 mg/dL (75-110); Sodium 138 mmol/L (137-145)
[2020-02-22 10:08] LABS: Potassium 4.6 mmol/L (3.4-5.0)
--- NOTE | 2020-02-22 10:13 | WPDMODSED ---
Moderate Sedation Note-Pt Data Patient Data Diagnosis: Cardiomyopathy Present Complaint: no complaints Procedure to be performed/Plan: left heart catheterization Allergies Allergy/AdvReac Type Severity Reaction Status Date / Time No Known Allergies Allergy Verified 08/24/19 19:10 Home Medications Medication Instructions Recorded Confirmed Type carvedilol [Coreg] 6.25 mg PO Q12HR #60 tablet 08/28/19 02/21/20 Rx losartan [Cozaar] 50 mg PO QAM #30 tablet 08/28/19 02/21/20 Rx spironolactone 25 mg PO QAM #30 tablet 08/28/19 02/21/20 Rx Current Medications: Active Medications Sodium Chloride (Normal Saline Iv) 500 mls @ 100 mls/hr IV CONT .Q5H ZACKARY Sedation/Anesthesia: No previous sedation/anesthesia problems (including family history). [facility] Past Medical History Medical History (Updated 08/27/19 @ 10:55 by Della Titus PA-C) T2DM (type 2 diabetes mellitus) Family History Family History (Updated 08/25/19 @ 14:12 by Della Titus PA-C) Mother Heart disease, Onset Age: 60 Social History Social History (Updated 08/25/19 @ 14:16 by Della Titus PA-C) Social History: Patient denies cigarette, marijuana, or drug use. He did occasionally smoke 2 cigars a day for a while but has quit that. He works in construction. He would like to does need his coni Parekh as his surrogate decision maker. He does not have a primary care physician and he would like to be a full code Smoking status: Former smoker Tobacco type: cigarettes Second hand tobacco smoke exposure: Yes Alcohol intake: current Drinks per week: 1 Alcohol use details: SOCIALLY Substance use: never Substance use type: does not use Living arrangements: alone Gender identity (if verbalized by the patient): Male Spiritual care concerns: No Agree to blood products: Yes Mod Sed Physical Exam Physical Exam Pre Procedural Exam: Normal: Appearance, Nose, Neck, Throat, Airway, Lungs, Heart Size, Heart Rate, Heart Rhythm, Neuro Exam and Extremities Hours since solid foods: 12 Hours since liquid intake: 12 Internal Medicine - PN: Obj Da Vital Signs Vital Signs: Vital Signs - 24 hr 02/22/20 09:53 Temperature 34.8 C L Pulse Rate 80 Respiratory Rate 12 Blood Pressure 138/70 Pulse Oximetry 95 Meds/Results Medications: Active Medications Generic Name Dose Route Start Last Admin Trade Name Nimeshq PRN Reason Stop Dose Admin Sodium Chloride 500 mls @ 100 mls/hr 02/22/20 06:55 Normal Saline Iv IV CONT .Q5H ZACKARY Labs CBC & Chem 7: 02/22/20 09:40 02/22/20 09:41 Labs: Laboratory Results - last 24 hr 02/22/20 02/22/20 02/22/20 09:40 09:40 09:41 WBC 8.1 RBC 5.84 Hgb 12.9 L Hct 43.0 MCV 73.6 L MCH 22.1 L MCHC 30.0 L RDW 14.4 Plt Count 232 MPV 12.4 H Immature Gran % (Auto) 0.2 Neut % (Auto) 69.0 Lymph % (Auto) 19.6 Hettinger % (Auto) 8.2 Eos % (Auto) 2.4 Baso % (Auto) 0.6 Lymph # (Auto) 1.58 Hettinger # (Auto) 0.7 H Eos # (Auto) 0.2 Baso # (Auto) 0.1 Abs Immat Gran (auto) 0.02 Absolute Neuts (auto) 5.6 Absolute Nucleated RBC 0.0 Nucleated RBC % 0.0 PT 11.8 INR 0.9 Sodium 138 Potassium 4.6 Chloride 102 Carbon Dioxide 26 Anion Gap 10 BUN 16 Creatinine 0.90 Estim Creat Clear Calc 98 Estimated GFR > 60 Glucose 335 H Calcium 9.5 ASA Classification/Sedation ASA Classification/Sedation ASA Class: II Emergent: No Risks: Risks, benefits and alternatives explained and patient/family accepted plan for sedation. Patient re-evaluated immediately prior to sedation.
--- NOTE | 2020-02-22 11:11 | P.PCNCC_ITS ---
Cardiac Cath Procedure Note Date of procedure:: 02/22/20 Performing physician:: Blaise Kirkland MD Indication:: Recently diagnosed cardiomyopathy Brief clinical history:: this is a 49-year-old gentleman with recently found left ventricular systolic dysfunction which is being treated medically when he presented with congestive heart failure. The patient is doing well clinically and appears to be compensated. Angiography was recommended to determine if this is a ischemic versus nonischemic process. Procedure Procedure performed:: Left heart catheterization Sedation/Medication given:: fentanyl 50 mg Versed 2 mg case start time 10:54 a.m. case end time 11:06 a.m. sedation provided by Ashley Castañeda RN, trained observer Access site:: right femoral artery Estimated blood loss:: 15-20 cc Procedure note:: patient was brought to the cardiac catheterization lab in postabsorptive state where the right femoral triangle was prepared and draped in the usual fashion. See a 1% lidocaine infiltrated locally. using modified Seldinger technique the right femoral artery was punctured 5 Upper Sorbian vascular sheath was placed. The patient underwent left heart catheterization this a angled pigtail catheter was used to document left-sided hemodynamics and injected LV g in the ER AO projection. Following this the left coronary artery was engaged and injected using standard 5 Upper Sorbian FL4 catheter the right coronary was engaged using standard 5 Upper Sorbian JR4 catheter. The cine angiograms were then reviewed and the case was terminated. an angiogram done femoral artery with sheath it was determined the sheath to be removed with direct compression. 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 Findings:: Hemodynamics: Patient was bigeminy during case somewhat affecting hemodynamics. Central aortic pressure 137 over 70 left ventricle 137 over 0 end-diastolic pressure 5. No gradient across the valve. The left ventricle is moderately dilated there is global hypocontractility identified the ejection fraction is in the vicinity of 35%. The left main coronary artery is short but widely patent. The left anterior descending is a moderate caliber vessel extending down to around the cardiac apex the LAD and its branches are angiographically smooth and unremarkable. The circumflex is a moderate caliber artery giving rise to the marginal branches. The circumflex system is smooth and angiographically normal. Right coronary artery is large and dominant to the posterior circulation. The RCA is smooth and angiographically normal. Conclusion:: 1. Right coronary dominant circulation with no evidence of coronary disease 2. left ventricular enlargement with global hypocontractility ejection fraction is visually estimated to be 35% at this time. Blaise Kirkland MD FACC
--- NOTE | 2020-02-22 11:20 | SUR.PHASEII ---
BEGIN PHASE II RECOVERY. RETURNS TO EDUCATIONAL ASSISTANT TEACHER 5 S/P [facility] W/ DR. LEAVITT. 5FR SHEATH INTACT R. FEM. ARTERY. AWAKE AND ALERT ON ARRIVAL, DENIES CP OR SOB. VSS. R. GROIN SITE SOFT, NONTENDER. NO BLEEDING OR HEMATOMA NOTED. IVF'S RUNNING ORDERED. REVIEWED BEDREST ACTIVITY RESTRICTIONS W/ PT. VOICED UNDERSTANDING. WILL CONTINUE TO MONITOR.
[2020-02-22] MEDS: SODIUM CHLORIDE 0.9% IV 1,000 ML 125 ML IV CONT (11:30)
--- NOTE | 2020-02-22 11:33 | SUR.PHASEII ---
SHEATH PULL R. FEM ARTERY BY SHANTELL LOTT RN PER PROTOCOL. MANUAL PULL WITH FIRM STEADY PRESSURE TO SITE UNTIL HEMOSTASIS. WILL MONITOR.
--- NOTE | 2020-02-22 11:58 | SUR.PHASEII ---
HEMOSTATIS R. GROIN PUNCTURE SITE AFTER 25 MINUTES MANUAL PRESSURE HOLD. TOLERATED WELL. SITE DRESSED W/ GUAZE AND TEGADERM DRESSING . BEDREST X 4 HOURS UNTIL 1600. REVIEWED BEDREST ACTIVITY RESTRICTIONS W/ PT AND SIGNIFICANT OTHER. WILL CONTINUE TO MONITOR.
--- NOTE | 2020-02-22 16:00 | SUR.PHASEII ---
BEDREST COMPLETE. UP TO BATHROOM TO VOID AND THEN TO RECLINER CHAIR AT BEDSIDE. TOLERATED WELL. STEADY. R. GROIN SITE WITHOUT CHANGE. WILL CONTINUE TO MONITOR.
--- NOTE | 2020-02-22 17:34 | SUR.PHASEII ---
END PHASE II RECOVERY. DISCHARGE INSTRUCTIONS HAS BEEN GIVEN AND DISCUSSED. VOICED UNDERSTANDING AND COPY OF SUCH GIVEN. R. GROIN SITE UNCHAGED. DRESSING TO SITE C/D/I. R. PEDAL PULSE PALP STRONG. VOICES NO C/O. DISCHARGED HOME, OUT VIA WC WITH ALL PERSONAL BELONGINGS AND DISCHARGE PACKET TO FAMILY WAITING CAR. NO DISTRESS NOTED.
== END 2020-02-22 17:34 | disposition home or self-care (01) ==
PROVIDERS: Visit Provider Specialist
PROC: 4A023N7 Measurement of Cardiac Sampling and Pressure, Left Heart, Percutaneous Approach (ICD-10-PCS; CPT 93452; principal; 2020-02-22 10:00)
DX: I42.0 Dilated cardiomyopathy (principal); I50.20 Unspecified systolic (congestive) heart failure; Z87.891 Personal history of nicotine dependence
CPT/HCPCS: 36415; 80048; 85025; 85610; 93458; C1887; C1894; J1644; J2250; J3010; J7040